=== PATIENT | male | born 1995 | race African-American/Black ===

== ENCOUNTER 2018-03-27 19:08 | Emergency (ER) | payer BC, MEDICAID ==
[~2018-03-27] VITALS: Ht 177.8 cm; Wt 150.0 kg
[2018-03-27] MEDS ORDERED: KETOROLAC 60MG/2ML VIAL IM ONE (22:45)
[2018-03-27 23:15] VITALS: BP 148/93
== END 2018-03-28 00:05 | disposition home or self-care (01) ==
LOC: ER 20:53
DX: M25.512 Pain in left shoulder (principal)
CPT/HCPCS: 73030; 96372; 99284; J1885

== ENCOUNTER 2019-08-03 11:28 | Emergency (ER) | payer MEDICAID ==
[~2019-08-03] VITALS: Ht 180.3 cm; Wt 136.0 kg
[2019-08-03] MEDS ORDERED: IBUPROFEN 400MG TABLET PO ONE (14:00)
[2019-08-03 14:48] VITALS: BP 141/86
== END 2019-08-03 15:11 | disposition home or self-care (01) ==
LOC: ER 11:28
DX: R07.89 Other chest pain (principal); R03.0 Elevated blood-pressure reading, without diagnosis of hypertension; Z91.81 History of falling
CPT/HCPCS: 71045; 99283

== ENCOUNTER 2021-11-29 09:02 | Emergency (ER) | payer MEDICAID ==
[~2021-11-29] VITALS: Ht 182.9 cm; Wt 91.0 kg
[2021-11-29] MEDS ORDERED: IBUPROFEN 600MG TABLET PO ONE (09:30)
[2021-11-29 10:01] VITALS: BP 121/94
[2021-11-29] MEDS ORDERED: IBUP-2028 MT (10:08)
== END 2021-11-29 10:35 | disposition home or self-care (01) ==
LOC: ER 09:08
DX: S63.681A Other sprain of right thumb, initial encounter (principal); E11.9 Type 2 diabetes mellitus without complications; Y04.0XXA Assault by unarmed brawl or fight, initial encounter; Y93.89 Activity, other specified; Y92.018 Other place in single-family (private) house as the place of occurrence of the external cause
CPT/HCPCS: 73130; 99283

== ENCOUNTER 2022-06-09 21:54 | Emergency (ER) | payer MEDICAID ==
[~2022-06-09] VITALS: Ht 182.9 cm; Wt 129.0 kg
[~2022-06-09 21:54] MED LIST: IBUP-2028 MT
[2022-06-10 00:48] LABS: CLARITY URINE CLEAR (CLEAR); COLOR URINE YELLOW (YELLOW); KETONES URINE 1+ (NEGATIVE); LEUKOCYTE ESTERASE URINE NEGATIVE (NEGATIVE); NITRITE URINE NEGATIVE (NEGATIVE); OCCULT BLOOD URINE NEGATIVE (NEGATIVE); PH URINE 6.5 (4.5-8.0); PROTEIN URINE NEGATIVE (NEGATIVE); SPECIFIC GRAVITY URINE 1.026 (1.005-1.030)
[2022-06-10 00:55] LABS: BASOPHILS % 0.4 % (0.0-2.0); EOSINOPHILS % 1.3 % (0.0-5.0); HEMATOCRIT. 44.9 % (42.0-52.0); HEMOGLOBIN. 14.2 g/dL (14.0-18.0); LYMPHOCYTES % 33.8 % (20.0-50.0); MEAN CORPUSCULAR HEMOGLOBIN 23.7 pg (28.0-32.0); MEAN CORPUSCULAR VOLUME 74.9 fL (80.0-94.0); MEAN PLATELET VOLUME 8.3 fl (7.4-10.4); MONOCYTES % 10.5 % (2.0-8.0); PLATELET 243 x1000/uL (130-400); RED CELL DISTRIBUTION WIDTH 14.3 % (11.6-14.6)
[2022-06-10 00:58] LABS: CHLORIDE 103 mEq/L (98-107)
[2022-06-10 01:05] LABS: *AMPHETAMINES SCREEN URINE NEGATIVE (NEGATIVE); *BARBITURATES SCREEN URINE NEGATIVE (NEGATIVE); *BENZODIAZEPINES SCREEN URINE NEGATIVE (NEGATIVE); *COCAINE SCREEN URINE NEGATIVE (NEGATIVE); CANNABINOID URINE SCREEN PRESUMTIVE POSITIVE (NEGATIVE); METHADONE URINE SCREEN NEGATIVE (NEGATIVE); OPIATES URINE SCREEN NEGATIVE (NEGATIVE); PHENCYCLIDINE URINE SCREEN NEGATIVE (NEGATIVE)
[2022-06-10 01:15] LABS: ETHANOL BLOOD < 10 mg/dL
[2022-06-10 02:20] VITALS: BP 135/84
== END 2022-06-10 02:34 | disposition home or self-care (01) ==
LOC: ER 22:23
DX: F41.0 Panic disorder [episodic paroxysmal anxiety] (principal); R00.2 Palpitations; F12.10 Cannabis abuse, uncomplicated; E11.9 Type 2 diabetes mellitus without complications
CPT/HCPCS: 36415; 71045; 80053; 80305; 80320; 81003; 83880; 84443; 84484; 85025; 93005; 99285; G0480

== ENCOUNTER 2022-06-12 11:58 | Emergency (ER) | payer MEDICAID ==
[~2022-06-12] VITALS: Ht 175.3 cm; Wt 101.0 kg
[2022-06-12 13:38] VITALS: BP 127/86
== END 2022-06-12 14:23 | disposition home or self-care (01) ==
LOC: ER 11:58
DX: F41.0 Panic disorder [episodic paroxysmal anxiety] (principal); E11.9 Type 2 diabetes mellitus without complications
CPT/HCPCS: 99281